=== PATIENT | male | born 1995 | race Caucasian/White ===

== ENCOUNTER 2019-07-07 18:47 | Emergency (ER) | payer BC ==
[~2019-07-07] VITALS: Ht 165.1 cm; Wt 61.2 kg
[~2019-07-07 18:47] MED LIST: NORCO 5-325 TA1 EACH PO
[2019-07-07 18:57] VITALS: BP 135/86
[2019-07-07] MEDS ORDERED: HYDROXYZINE HCL25 M2 PO (19:30)
== END 2019-07-07 19:37 | disposition home or self-care (01) ==
LOC: M.ERS 18:47
DX: F41.9 Anxiety disorder, unspecified (principal); F17.210 Nicotine dependence, cigarettes, uncomplicated; Z90.49 Acquired absence of other specified parts of digestive tract